=== PATIENT | female | born 1955 | race Caucasian/White ===

== ENCOUNTER 2017-05-02 07:06 | Outpatient (CLI) | payer OTHER ==
--- NOTE | 2017-05-02 09:22 | CT ---
ABDOMEN AND PELVIC CT SCAN: History: 62-year-old female with left lower quadrant pain for three months, progressively getting worse. Eval uate for hernia. FINDINGS: The liver, gallbladder, pancreas, and adrenal glands are unremarkable. Minimal splenomegaly. No negrita l calculus or acute obstruction. No evidence of large or small bowel obstruction. Probable small hiatal hernia. No evidence of anterior abdominal wall or periumbilical hernia. No evidence of inguin al hernia. Normal appearing appendix. IMPRESSION: Minimal splenomegaly. Possible small sliding hiatal hernia. No other significant acute process in th e abdomen or pelvis. POS: [facility]
[2017-05-02] MEDS ORDERED: Iopamidol 370 76% 100 ML VIAL ONE (14:16)
== END 2017-05-02 07:07 | disposition home or self-care (01) ==
LOC: CT 07:06
PROVIDERS: ATTEND Surgery
DX: R10.32 Left lower quadrant pain (principal)
CPT/HCPCS: 74177

== ENCOUNTER 2018-01-09 13:02 | Outpatient (CLI) | payer OTHER | END 2018-01-09 13:03 | disposition home or self-care (01) | LOC: BICMAMMO 13:02 | PROVIDERS: ATTEND Obstetrics & Gynecology | DX: Z12.31 Encounter for screening mammogram for malignant neoplasm of breast (principal) | CPT/HCPCS: 77063; 77067 ==

== ENCOUNTER 2019-02-22 08:25 | Outpatient (CLI) | payer OTHER ==
--- NOTE | 2019-02-22 09:27 | MMO ---
Bilateral MAMMO Bilat Screen [facility]. CLINICAL HISTORY: Patient is 63 years old and is seen for screening. The patient has no family history of breast cancer. The patient has no personal history of cancer. VIEWS: The views performed were: bilateral craniocaudal with tomosynthesis and bilateral mediolateral oblique with tomosynthesis. FILMS COMPARED: The present examination has been compared to prior imaging studies performed at [facility] on 12/27/2016 and 01/09/2018, and at [facility] on 01/02/2012 and 01/04/2013. MAMMOGRAM FINDINGS: There are scattered fibroglandular densities. There are benign appearing calcifications seen in both breasts. There are no suspicious masses, suspicious calcifications, or new areas of architectural distortion. IMPRESSION: THERE IS NO MAMMOGRAPHIC EVIDENCE OF MALIGNANCY. A ROUTINE FOLLOW-UP MAMMOGRAM IN 1 YEAR IS RECOMMENDED. THE RESULTS OF THIS EXAM WERE SENT TO THE PATIENT. ACR BI-RADS Category 2 - Benign finding MAMMOGRAPHY NOTE: 1. A negative mammogram report should not delay a biopsy if a dominant of clinically suspicious mass is present. 2. Approximately 10% to 15% of breast cancers are not detected by mammography. 3. Adenosis and dense breasts may obscure an underlying neoplasm. Reported by: KARLOS GALLOWAY MD Electonically Signed: [id number]
--- NOTE | 2019-02-22 10:17 | BD ---
DEXA SCAN: INDICATION: Postmenopausal osteoporosis screening. COMPARISON: None. FINDINGS: Lumbar Spine: BMD (g/cm2) L1 1.007 T-Score: 0.2 Z-Score: 1.6 L2 1.065 T-Score: 0.3 Z-Score: 1.9 L3 1.018 T-Score: -0.6 Z-Score: 1.1 L4 1.127 T-Score: 0.6 Z-Score: 2.3 L1-L4 1.060 T-Score: 0.1 Z-Score: 1.7 Femoral Neck: 0.751 T-Score: -0.9 Z-Score: 0.5 Total Femur: 0.885 T-Score: -0.5 Z-Score: 0.6 Impression: Based on WHO criteria, the patient's bone mineral density is considered normal. The patient is at lo w risk for fracture. POS: OFF
== END 2019-02-22 08:26 | disposition home or self-care (01) ==
LOC: BICMAMMO 08:25
PROVIDERS: ATTEND Family Medicine
DX: Z12.31 Encounter for screening mammogram for malignant neoplasm of breast (principal); Z13.820 Encounter for screening for osteoporosis; Z78.0 Asymptomatic menopausal state
CPT/HCPCS: 77063; 77067; 77080

== ENCOUNTER 2020-09-29 13:07 | Outpatient (CLI) | payer BC | END 2020-09-29 13:08 | disposition home or self-care (01) | LOC: BICMAMMO 13:07 | PROVIDERS: ATTEND Family Medicine | DX: Z12.31 Encounter for screening mammogram for malignant neoplasm of breast (principal) | CPT/HCPCS: 77063; 77067 ==

== ENCOUNTER 2021-11-04 08:05 | Outpatient (CLI) | payer MEDICARE | END 2021-11-04 08:06 | disposition home or self-care (01) | LOC: BICMAMMO 08:05 | PROVIDERS: ATTEND Family Medicine | DX: Z12.31 Encounter for screening mammogram for malignant neoplasm of breast (principal) | CPT/HCPCS: 77063; 77067 ==